=== PATIENT | male | born 1960 | race Caucasian/White ===

== ENCOUNTER 2023-07-19 13:12 | Emergency (ER) | payer OTHER, SELFPAY ==
[2023-07-19 13:20] VITALS: BP 145/87; PULSE 86; RESP 18; TEMP 36.4; O2SAT 96
[2023-07-19 14:19] LABS: Basophils Percent Auto 0.4 % (0.2-1.2); Eosinophils Absolute Auto 0.1 K/mm3 (0-0.3); Eosinophils Percent Auto 0.9 % (0-4.4); Hematocrit 43.6 % (42.0-52.0); Hemoglobin 14.3 g/dL (14.0-18.0); Immature Granulocyte Absolute 0.04 K/mm3 (0.00-0.031); Immature Granulocyte Percent A 0.4 % (0-0.5); Lymphocytes Absolute Auto 1.04 K/mm3 (0.9-3.2); Lymphocytes Percent Auto 9.8 % (18.3-44.2); Mean Corpuscular HGB Conc 32.8 g/dl (32-36); Mean Corpuscular Hemoglobin 29.8 pg (26-34); Mean Corpuscular Volume 90.8 fl (80-100); Mean Platelet Volume 11.1 fl (7.4-10.4); Monocytes Absolute Auto 0.8 K/mm3 (0.1-0.6); Monocytes Percent Auto 7.8 % (2.6-8.5); Neutrophils Absolute Auto 8.5 K/mm3 (1.3-6.7); Neutrophils Percent Auto 80.7 % (45.5-73.1); Platelet Count Result 194 k/mm3 (150-375); Red Cell Distribution Width 12.6 % (11.5-14.5); White Blood Count 10.6 K/mm3 (4.5-10.0)
[2023-07-19 14:26] LABS: Anion Gap 9 mmol/L (4-12); Blood Urea Nitrogen 14 mg/dL (9-20); Carbon Dioxide 22 mmol/L (22-30); Chloride 106 mmol/L (98-107); Estimated Glomerular Filt Rate > 60; Glucose 97 mg/dL (65-110); Potassium 4.1 mmol/L (3.4-5.0); Sodium 137 mmol/L (137-145)
[2023-07-19] MEDS: methylPREDNISolone SOD SUCC 40 MG VIAL IV PUSH (15:40)
[2023-07-19 16:11] LABS: Lactic Acid Reflex 1.6 mmol/L (0.7-2.0)
[2023-07-19 16:23] LABS: Erythrocyte Sedimentation Rate 21 mm/hr (0-20)
[2023-07-19 16:44] VITALS: BP 119/64
--- NOTE | 2023-07-19 17:14 | ED.SKABFB ---
HPI - Skin/Abscess/Foreign Bdy General Chief complaint: Skin/Abscess/Foreign Body Stated complaint: skin problem of hands and feet Time Seen by Provider: 07/19/23 13:44 History of Present Illness HPI narrative: Patient presenting with his rash to his palms, soles of his feet, elbows and arms, ongoing for 3 weeks with a skin is peeling off. Was initially just to his hands however it has started to spread to more joints, he has no fevers or chills other systemic symptoms, he went to urgent care who gave him a script for antifungal pills which did not help and has only spread more. Related Data Home Medications Medication Instructions Recorded Confirmed aspirin 81 mg tablet 81 mg PO DAILY 06/10/23 06/10/23 atorvastatin 40 mg tablet 40 mg PO DAILY 06/10/23 06/10/23 metoprolol succinate 100 mg 100 mg PO DAILY 06/10/23 06/10/23 capsule sprinkle, ext. release 24 hr omeprazole 20 mg capsule,delayed 20 mg PO DAILY 06/10/23 06/10/23 release Allergies Allergy/AdvReac Type Severity Reaction Status Date / Time No Known Allergies Allergy Verified 07/19/23 13:50 Review of Systems Review of Systems: All systems reviewed & are unremarkable except as noted in HPI and below PMFSH Past Medical History Medical History (Updated 07/19/23 @ 16:13 by Aretha Shaikh MD) Congestive heart failure GERD (gastroesophageal reflux disease) Heart disease Family History Family History (Updated 06/10/23 @ 08:52 by Violeta Sal MA) Father Diabetes mellitus Hypertension Heart valve problem Mother Heart valve problem Sibling Heart valve problem Social History Social History (Updated 06/10/23 @ 08:53 by Violeta Sal MA) Social History: caffiene -soda Smoking status: Former smoker Alcohol intake: never Substance use: never Substance use type: does not use Do You Feel Safe in your Home?: Yes Lack of Transportation: No Lack of Food: Never True Current Housing: I Have Housing Concerned About Future Housing: No Difficulty Paying Gas/Electric Bills: No Difficulty Paying for Meds: No Education: High School Diploma/GED Difficulty w/ Childcare or Family Care: No Living arrangements: with family Additional living arrangements comments: spouse Occupation/Education: other Gender identity (if verbalized by the patient): Male Sexual Orientation (if Verbalized by the Patient): Straight or Heterosexual Exam Narrative: EXAMINATION OF ORGAN SYSTEMS/BODY AREAS: Constitutional: Vital signs per nursing GENERAL:[No acute distress, non-toxic appearing.] HEAD: Normal with no signs of head trauma. EYES: EOMI, conjunctiva normal ENT: No mucosal ulcers LUNGS: Nonlabored breathing. HEART: [Regular rate and rhythm] ABD: Hernia EXT: Normal range of motion SKIN: Desquamating rash to palms, soles of feet, elbows NEURO: [Alert and oriented x 3. No gross focal sensory or strength deficits.] PSYCH: Normal affect Course Vital Signs Vital signs: Vital Signs Temperature 97.6 F 07/19/23 13:20 Pulse Rate 86 07/19/23 13:20 Respiratory Rate 18 07/19/23 13:20 Blood Pressure 145/87 H 07/19/23 13:20 Pulse Oximetry 96 07/19/23 13:20 Oxygen Delivery Room Air 07/19/23 13:20 Temperature 97.6 F 07/19/23 13:20 Pulse Rate 86 07/19/23 13:20 Respiratory Rate 18 07/19/23 13:20 Blood Pressure 119/64 07/19/23 16:44 Pulse Oximetry 96 07/19/23 13:20 Oxygen Delivery Room Air 07/19/23 13:20 MDM - Skin/Abscess/Foreign Bdy MDM Narrative Medical decision making narrative: Patient presenting with desquamating rash that has been slowly worsening over the last 3 weeks, no history of this in the past, no new medications, on exam is nontoxic, has also already tried antifungals. I suspect most likely eczema or other autoimmune skin disease, very unlikely Yordan Gordon's or other serious disease without any systemic symptoms or mucosal involvement, and also with the slo
== END 2023-07-19 16:26 | disposition home or self-care (01) ==
PROVIDERS: Emergency Provider Emergency Medicine; PCP Emergency Medicine
DX: R23.4 Changes in skin texture (principal); I50.9 Heart failure, unspecified; K21.9 Gastro-esophageal reflux disease without esophagitis; Z87.891 Personal history of nicotine dependence
CPT/HCPCS: 36415; 80048; 83605; 85025; 85652; 86140; 87040; 96374; 99284; J2919

== ENCOUNTER 2023-08-08 16:12 | Emergency (ER) | payer OTHER, SELFPAY ==
[2023-08-08 16:13] VITALS: BP 127/92; RESP 18; TEMP 36.6; O2SAT 97
[2023-08-08 17:56] LABS: Basophils Absolute Auto 0.1 K/mm3 (0.0-0.1); Basophils Percent Auto 0.3 % (0.2-1.2); Eosinophils Percent Auto 0.2 % (0-4.4); Hematocrit 44.8 % (42.0-52.0); Hemoglobin 14.6 g/dL (14.0-18.0); Immature Granulocyte Absolute 0.06 K/mm3 (0.00-0.031); Immature Granulocyte Percent A 0.3 % (0-0.5); Lymphocytes Absolute Auto 1.03 K/mm3 (0.9-3.2); Lymphocytes Percent Auto 5.7 % (18.3-44.2); Mean Corpuscular HGB Conc 32.6 g/dl (32-36); Mean Corpuscular Hemoglobin 29.6 pg (26-34); Mean Corpuscular Volume 90.7 fl (80-100); Mean Platelet Volume 11.8 fl (7.4-10.4); Monocytes Absolute Auto 1.4 K/mm3 (0.1-0.6); Monocytes Percent Auto 7.8 % (2.6-8.5); Neutrophils Absolute Auto 15.4 K/mm3 (1.3-6.7); Neutrophils Percent Auto 85.7 % (45.5-73.1); Platelet Count Result 218 k/mm3 (150-375); Red Blood Count 4.94 M/mm3 (4.6-6.20); Red Cell Distribution Width 12.9 % (11.5-14.5)
--- NOTE | 2023-08-08 18:05 | ED.SKABFB ---
HPI - Skin/Abscess/Foreign Bdy General Chief complaint: Skin/Abscess/Foreign Body <Aditi Dumont PA-C - Last Filed: 08/13/23 01:16> Stated complaint: hand rash <Aditi Dumont PA-C - Last Filed: 08/13/23 01:16> Time Seen by Provider: 08/08/23 16:23 <Aditi Dumont PA-C - Last Filed: 08/13/23 01:16> History of Present Illness HPI narrative: This is a 8-year-old male who presents to the ED with a diffuse rash for approximately 1 month. Patient states the rash started on the palms and soles of his feet and shows up as little pimples, then turns red and developed a scab, the scab soft off and the skin is raw underneath. It is now spread to his arms, chest, abdomen, back, lower extremities. He was seen in our emergency department on 07/19/2023 with a normal workup. He was discharged home with p.o. steroids and topical steroids due to concerns for pustular psoriasis. Patient states he used the steroids as directed and felt like they did have improvement, however the rash returned with vengeance 4 days ago and has persistently gotten worse. He states for of the nails on each and have fallen off. He denies fever, new or changing medications other than the steroids, vomiting or systemic signs of infection. He denies recent travel or antibiotic use, insect or tick bites, he is not sexually active and denies concern for HIV or syphilis. Patient states he has not noticed any lesions or sores in his mouth and it does not feel any discomfort in his eyes. Patient states the rash is painful, he denies pure itis. <Aditi Dumont PA-C - Last Filed: 08/13/23 01:16> Related Data Home medications: Home Medications Medication Instructions Recorded Confirmed aspirin 81 mg tablet 81 mg PO DAILY 06/10/23 06/10/23 atorvastatin 40 mg tablet 40 mg PO DAILY 06/10/23 06/10/23 metoprolol succinate 100 mg 100 mg PO DAILY 06/10/23 06/10/23 capsule sprinkle, ext. release 24 hr omeprazole 20 mg capsule,delayed 20 mg PO DAILY 06/10/23 06/10/23 release <Aditi Dumont PA-C - Last Filed: 08/13/23 01:16> Allergies/Adverse reactions: Allergies Allergy/AdvReac Type Severity Reaction Status Date / Time No Known Allergies Allergy Verified 08/08/23 17:03 <Aditi Dumont PA-C - Last Filed: 08/13/23 01:16> Review of Systems Review of Systems: CONSTITUTIONAL: Denies fever, chills, or sweats. EYES: Denies visual changes, redness, or discharge. ENT: Denies rhinorrhea, congestion, sore throat, or otalgia. CARDIOVASCULAR: Denies chest pain, palpitations, or edema. RESPIRATORY: Denies cough or dyspnea. GASTROINTESTINAL: Denies abdominal pain, nausea, vomiting, or diarrhea. GENITOURINARY: Denies dysuria or hematuria. SKIN: See HPI MUSCULOSKELETAL: Denies back pain, joint pain, or myalgia. NEUROLOGIC: Denies headache, numbness, or weakness. PSYCHIATRIC: Denies anxiety or depression. <Aditi Dumont PA-C - Last Filed: 08/13/23 01:16> [facility] Past Medical History Medical History: Medical History (Updated 08/09/23 @ 00:00 by [facility] Daebenezer) Congestive heart failure GERD (gastroesophageal reflux disease) Heart disease <Aditi Dumont PA-C - Last Filed: 08/13/23 01:16> Family History Family History: Family History (Updated 06/10/23 @ 08:52 by Violeta Sal MA) Father Diabetes mellitus Hypertension Heart valve problem Mother Heart valve problem Sibling Heart valve problem <Aditi Dumont PA-C - Last Filed: 08/13/23 01:16> Social History Social History: Social History (Updated 06/10/23 @ 08:53 by Violeta Sal MA) Social History: caffiene -soda Smoking status: Former smoker Alcohol intake: never Substance use: never Substance use type: does not use Do You Feel Safe in your Home?: Yes Lack of Transportation: No Lack of Food: Never True Current Housing: I Have Housing Concerned About Future Housing: No Difficu
[2023-08-08 18:12] VITALS: BP 135/97; PULSE 104; RESP 18; TEMP 36.7; O2SAT 98
[2023-08-08 18:26] LABS: Alanine Aminotransferase 23 U/L (6-50); Albumin Level 4.6 g/dL (3.5-5.1); Alkaline Phosphatase 103 U/L (38-126); Anion Gap 12 mmol/L (4-12); Aspartate Amino Transferase 29 U/L (17-59); Bilirubin,Total 1.5 mg/dL (0.2-1.3); Blood Urea Nitrogen 24 mg/dL (9-20); CRP 21.3 mg/dL (<1.0); Carbon Dioxide 23 mmol/L (22-30); Chloride 99 mmol/L (98-107); Estimated CRCL calculation 72 ml/min; Estimated Glomerular Filt Rate > 60; Glucose 122 mg/dL (65-110); Magnesium 1.8 mg/dL (1.6-2.3); Potassium 4.2 mmol/L (3.4-5.0); Sodium 134 mmol/L (137-145)
[2023-08-08 18:37] LABS: Erythrocyte Sedimentation Rate 24 mm/hr (0-20)
[2023-08-08 18:50] LABS: HIV 1/2 Ab P24 Ag Result Negative (Negative)
[2023-08-08 20:14] VITALS: BP 132/94; PULSE 96; RESP 15; O2SAT 100
[2023-08-09 13:12] LABS: Rapid Plasma Reagin Non-Reactive (NonReactive)
[2023-08-11 11:48] LABS: Zinc 84 mcg/dL (60-130)
== END 2023-08-08 20:15 | disposition home or self-care (01) ==
PROVIDERS: Student in an Organized Health Care Education/Training Program; Emergency Provider Physician Assistant; PCP Emergency Medicine
DX: L40.9 Psoriasis, unspecified (principal); I50.9 Heart failure, unspecified; K21.9 Gastro-esophageal reflux disease without esophagitis; I51.9 Heart disease, unspecified; Z87.891 Personal history of nicotine dependence; Z79.899 Other long term (current) drug therapy; Z79.82 Long term (current) use of aspirin
CPT/HCPCS: 36415; 80053; 83735; 84443; 84630; 85025; 85652; 86140; 86592; 86703; 99283; G0432

== ENCOUNTER 2023-10-18 09:55 | Emergency (ER) | payer OTHER, SELFPAY ==
[2023-10-18] VITALS (17 sets, daily range): BP systolic 98–114; BP diastolic 50–82; PULSE 78–98; RESP 12–20; TEMP 36.4–36.6; O2SAT 90–100
--- NOTE | ~2023-10-18 | XR_ITS ---
XR chest 1V portable Ordering provider: Sai Sewell MD History: 63 years Male with . hypotension . Comparison: None. FINDINGS: MEDIASTINUM: The cardiac silhouette is slightly enlarged. Postoperative changes in the mediastinum. B ilateral bipolar pacemaker. Slightly congestive yojana. LUNGS: No infiltrates, effusions or pneumothorax. Prominent markings bilaterally in the lower lobes OTHER: No free air under the diaphragm. IMPRESSION: Prominent markings in the lower lobes more on the right side with possibility of early pneumonia. Cli nical correlation advised. Reviewed, dictated and finalized at location A. IMPRESSION: Prominent markings in the lower lobes more on the right side with possibility o f early pneumonia. Clinical correlation advised.
--- NOTE | 2023-10-18 10:03 | ECG_ITS ---
Test Date: 2023-10-18 10:13:04 Measurements Intervals [place] Rate: 91 P: 63 CT: 170 QRS: 20 QRSD: 98 T: 218 QT: 402 QTc: 495 Interpretive Statements SINUS RHYTHM LEFT VENTRICULAR HYPERTROPHY AND ST-T CHANGE [VOLTAGE CRITERIA PLUS ST/T ABNORMALITY] ABNORMAL ECG No previous ECG available for comparison Electronically Signed On 10-18-2023 15:06:52 CDT by Ermias Deal M.D.
[2023-10-18] MEDS: SODIUM CHLORIDE 0.9% IV 2,500 ML 999 ML IV CONT (10:27)
[2023-10-18 10:47] LABS: Basophils Percent Auto 0.1 % (0.2-1.2); Eosinophils Percent Auto 0.1 % (0-4.4); Hematocrit 29.9 % (42.0-52.0); Hemoglobin 9.1 g/dL (14.0-18.0); Immature Granulocyte Absolute 0.31 K/mm3 (0.00-0.031); Immature Granulocyte Percent A 2.2 % (0-0.5); Lymphocytes Absolute Auto 0.77 K/mm3 (0.9-3.2); Lymphocytes Percent Auto 5.5 % (18.3-44.2); Mean Corpuscular HGB Conc 30.4 g/dl (32-36); Mean Corpuscular Hemoglobin 28.7 pg (26-34); Mean Corpuscular Volume 94.3 fl (80-100); Mean Platelet Volume 10.6 fl (7.4-10.4); Monocytes Absolute Auto 0.7 K/mm3 (0.1-0.6); Monocytes Percent Auto 4.7 % (2.6-8.5); Neutrophils Absolute Auto 12.2 K/mm3 (1.3-6.7); Neutrophils Percent Auto 87.4 % (45.5-73.1); Platelet Count Result 338 k/mm3 (150-375); Red Blood Count 3.17 M/mm3 (4.6-6.20); Red Cell Distribution Width 17.6 % (11.5-14.5)
--- NOTE | 2023-10-18 10:57 | ED.GENADULT ---
HPI - General Adult General Chief complaint: Weakness Stated complaint: multiple concerns Time Seen by Provider: 10/18/23 09:57 History of Present Illness HPI narrative: This is a 63-year-old male presenting to ED with a chief complaint of weakness. Patient is a poor historian has almost no insight or recollection of his medical course over the last month and half. History gleaned from EMS and some discharge paperwork that the patient had an his house. He said that he developed a skin infection and pustular psoriasis about a month and half ago. He ended up at [facility] and was there for about 1 month. 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 He was then discharged to a rehab center and then readmitted at [facility] from October 11 to October 16. He was then discharged home after refusing senior care care. His home health nurse showed up the house and spent 1 hour with him and decided he is not capable of living on his own. This time the patient is complaining weakness. Denies fevers chills chest pain abdominal pain or urinary symptoms. EMS found the patient have soft blood pressures and hypoxic on room air. He was placed on 3 L nasal cannula. Related Data Home Medications Medication Instructions Recorded Confirmed aspirin 81 mg tablet 81 mg PO DAILY 06/10/23 06/10/23 atorvastatin 40 mg tablet 40 mg PO DAILY 06/10/23 06/10/23 metoprolol succinate 100 mg 100 mg PO DAILY 06/10/23 06/10/23 capsule sprinkle, ext. release 24 hr omeprazole 20 mg capsule,delayed 20 mg PO DAILY 06/10/23 06/10/23 release Allergies Allergy/AdvReac Type Severity Reaction Status Date / Time No Known Allergies Allergy Verified 08/08/23 17:03 [facility] Past Medical History Medical History Congestive heart failure GERD (gastroesophageal reflux disease) Heart disease Family History Family History Father Diabetes mellitus Hypertension Heart valve problem Mother Heart valve problem Sibling Heart valve problem Social History Social History Social History: caffiene -soda Smoking status: Former smoker Alcohol intake: never Substance use: never Substance use type: does not use Do You Feel Safe in your Home?: Yes Lack of Transportation: No Lack of Food: Never True Current Housing: I Have Housing Concerned About Future Housing: No Difficulty Paying Gas/Electric Bills: No Difficulty Paying for Meds: No Education: High School Diploma/GED Difficulty w/ Childcare or Family Care: No Living arrangements: with family Additional living arrangements comments: spouse Occupation/Education: other Gender identity (if verbalized by the patient): Male Sexual Orientation (if Verbalized by the Patient): Straight or Heterosexual Exam Narrative: APPEARANCE: Patient is chronically ill-appearing Head: atraumatic. EYES: EOMI, NOSE: Atraumatic NECK: Trachea midline RESPIRATORY: No increased rate of breathing, clear auscultation CARDIOVASCULAR: RRR, no peripheral edema ABDOMINAL: Ileostomy in the right side of the abdomen, there is a there is a midline abdominal incision with closed fascia and open skin with a wet to dry dressing. Granulation tissue. No signs of infection. The rest the abdomen is soft and nontender MUSCULOSKELETAl: No obvious deformities NEURO: Alert. Moving 4/4 extremities SKIN:: Multiple pustules and mild erythema and dry flaking skin PSYCHIATRIC: Normal affect Course Vital Signs Vital signs: Vital Signs Temperature 97.8 F 10/18/23 10:27 Pulse Rate 89 10/18/23 10:27 Respiratory Rate 20 10/18/23 10:27 Blood Pressure 98/67 L 10/18/23 10:27 Pulse Oximetry 94 10/18/23 10:27 Temperature 97.6 F 10/18/23 18
[2023-10-18 10:58] LABS: Ethanol < 10 mg/dL (<10); Lactic Acid Reflex 1.9 mmol/L (0.7-2.0)
[2023-10-18 11:00] LABS: INR 1.4; Partial Thromboplastin Time 29.3 Seconds (22.3-36.8); Prothrombin Time 17.4 Seconds (11.1-14.7)
[2023-10-18 11:22] LABS: Alveolar/Arterial O2 Gradient 39.4 mmHg; Base Excess ABG 4.4 mEq/l (+/-2.0); Fractional Inspired Oxygen 21 %; HCO3 ABG 27.5 mEq/l (22.0-26.0); Oxygen Content ABG 11.4 %vol (16.0-22.0); Oxygen Saturation ABG 95.3 % (95.0-100.0); Oxyhemoglobin 91.2 % THb (90.0-100.0); PCO2 ABG 35.2 mmHg (35.0-45.0); PO2 ABG 68.2 mmHg (80.0-100.0); PO2 FiO2 Ratio Arterial Blood 3.25 %; Total Hemoglobin 8.8 g/dL (12.0-18.0)
[2023-10-18 11:27] LABS: Alanine Aminotransferase 44 U/L (6-50); Albumin Level 2.6 g/dL (3.5-5.1); Alkaline Phosphatase 99 U/L (38-126); Anion Gap 8 mmol/L (4-12); Aspartate Amino Transferase 25 U/L (17-59); Bilirubin,Total 0.5 mg/dL (0.2-1.3); Blood Urea Nitrogen 20 mg/dL (9-20); Calcium 8.2 mg/dL (8.4-10.2); Carbon Dioxide 32 mmol/L (22-30); Chloride 94 mmol/L (98-107); Estimated CRCL calculation 138 ml/min; Estimated Glomerular Filt Rate > 60; Glucose 95 mg/dL (65-110); Lipase 30 U/L (23-300); Magnesium 1.5 mg/dL (1.6-2.3); NT Pro B Type Natriuretic Pept 2470 pg/mL (19.9-100); Phosphorus 4.7 mg/dL (2.5-4.5); Potassium 3.7 mmol/L (3.4-5.0); Sodium 134 mmol/L (137-145)
[2023-10-18 11:27] LABS: Device ROOM AIR; Modified Allen's Test Pass; Site Drawn LEFT RADIAL; pH ABG 7.511 (7.350-7.450)
[2023-10-18 11:28] LABS: Influenza A QL RT-PCR Negative (Negative); Influenza B QL RT-PCR Negative (Negative); RSV RNA, RT-PCR Negative (Negative); SARS-CoV-2 RNA PCR Positive (Negative)
[2023-10-18 11:39] LABS: Thyroid Stimulating Hormone Reflex 0.904 uIU/mL (0.465-4.68)
[2023-10-18 12:50] LABS: Add Urine Microscopic? YES; Appearance Urine Turbid (Clear); Bacteria Urine None Seen /hpf; Bilirubin Urine Negative (Negative); Blood Urine 3+ (Negative); Budding Yeast Urine Present /hpf; Color Urine Yellow (Yellow); Glucose Urine UA 1+ mg/dL (Negative); Ketones Urine Negative (Negative); Leukocyte Esterase Ur 3+ LEU/UL (Negative); Nitrate Urine Negative (Negative); Protein Urine 1+ mg/dL (Negative); RBC Urine >100 /hpf (0-2); Specific Grav Ur 1.009 (1.001-1.035); Squamous Epithelial Cell Urine None Seen /hpf (Few); Urobilinogen Urine 0.2 mg/dL (<2.0); WBC Urine >100 /hpf (0-3); pH Urine 5.5 (5.0-9.0)
[2023-10-18 13:15] LABS: Amphetamine Screen Urine Negative (Negative); Barbiturate Screen Urine Negative (Negative); Benzodiazepines Screen Urine Negative (Negative); Cannabinoid Screen Urine Negative (Negative); Cocaine Screen Urine Negative (Negative); Methadone Screen Urine Negative (Negative); Opiate Screen Urine Positive (Negative); Phencyclidine Screen Urine Negative (Negative)
[2023-10-18] MEDS: dexAMETHasone SOD PHOS INJ 10 MG/ML 1 ML VIAL IV PUSH (13:18)
[2023-10-18] MEDS: MAGNESIUM SULF 2 GM/WATER 50ML 2 GM/50 ML BAG IVPB (13:21)
--- NOTE | 2023-10-18 15:41 | PC.NURSE ---
pt accepted at [facility] by dr galvez
[2023-10-18 15:47] LABS: Glucose Point of Care 85 mg/dl (65-105)
[2023-10-18 16:00] LABS: Troponin I 0.111 ng/mL (0.000-0.034)
--- NOTE | 2023-10-18 16:09 | PCCCNOTE ---
CC called to the ED to discuss hospice with the patient and his . Pt wanted hospice set upp to help him get better. He wanted them to come to the house and take care of his wounds, get him a hospital bed, and possibly a elisabeth lift. I explained to the pt that hospice does not come for those reasons, unless you have a terminal diagnosis and you are stopping treatments to get better. ER spoke with the pt more and the decision was made to transfer him to [facility]. I gave them the list of hospice agencies incase he changed his mind and wanted to try to contact them at a later time.
--- NOTE | 2023-10-18 20:31 | PC.NURSE ---
Pt ileostomy and abcess drainage bags changed by this RN and Roshni RN. Pt tolerated well.
== END 2023-10-19 00:06 | disposition short-term general hospital (02) ==
PROVIDERS: Emergency Provider Emergency Medicine; PCP Emergency Medicine
DX: U07.1 COVID-19 (principal); N39.0 Urinary tract infection, site not specified; R79.89 Other specified abnormal findings of blood chemistry; Z93.2 Ileostomy status; I50.9 Heart failure, unspecified; K21.9 Gastro-esophageal reflux disease without esophagitis; Z79.82 Long term (current) use of aspirin; Z79.899 Other long term (current) drug therapy; I51.7 Cardiomegaly
CPT/HCPCS: 36415; 36600; 71045; 80053; 80307; 81001; 82805; 82948; 83605; 83690; 83735; 83880; 84100; 84443; 84484; 85025; 85610; 85730; 87040; 87086; 87637; 93005; 96361; 96365; 96366; 96367; 96375; 99285; J0696; J1100; J3475; J7030